=== PATIENT | female | born 1990 | race Caucasian/White ===

== ENCOUNTER 2017-02-27 07:18 | Emergency (ER) | payer OTHER ==
[~2017-02-27] VITALS: Ht 165.1 cm; Wt 74.8 kg
[~2017-02-27 07:18] MED LIST: ABILIFY 2 MG2 M1; ALPRAZOLAM ER1 MG; APRI1 EACH PO; CYMBALTA30 MG; METROGEL-VAGINA70 GM VG; ULTRAM 50MG TAB50 MG PO; ZOFRAN4 MG PO; ZYRTEC10 M2
[2017-02-27] MEDS ORDERED: ATIVAN0.5 MG PO (07:25)
[2017-02-27] MEDS ORDERED: BACTRIM DS TAB1 EACH PO (07:26)
[2017-02-27 07:42] LABS: URINE BILIRUBIN NEGATIVE (Negative); URINE BLOOD 3+ (Negative); URINE COLOR YELLOW; URINE GLUCOSE-RANDOM* NEGATIVE (Negative); URINE KETONES NEGATIVE (Negative); URINE LEUKOCYTES-REFLEX 1+ (Negative); URINE PROTEIN (DIPSTICK) NEGATIVE (Negative); URINE SPECIFIC GRAVITY <= 1.005 (1.003-1.035); URINE UROBILINOGEN 0.2 E.U./dl (0.2-1.0)
[2017-02-27 07:53] LABS: CASTS None Seen /LPF (None Seen); SQUAMOUS 4-10 Moderate /LPF (0-3)
[2017-02-27 07:54] LABS: CRYSTALS None Seen /LPF (None Seen); URINE RBC 0-2 Rare /HPF (0-2); URINE WBC-REFLEX 6-15 Few /HPF (0-5); WBC CLUMPS Few (None Seen)
[2017-02-27 08:21] LABS: ABSOLUTE NEUTROPHILS 8.2 thou/uL (1.4-8.2); BASOPHILS 0.5 % (0.0-2.0); EOSINOPHILS 1.4 % (0.0-3.0); HEMATOCRIT 40.2 % (37.0-47.0); HEMOGLOBIN 13.7 gm/dL (12.0-15.0); LYMPHOCYTES 22.1 % (24.0-44.0); MCH 32.2 pg (26.0-34.0); MCHC 34.1 g/dL (28.0-37.0); MCV 94.4 fL (80.0-100.0); MONOCYTES 5.7 % (1.0-8.0); PLATELET COUNT 175 thou/uL (150-400); POLYS 70.3 % (36.0-66.0); RBC 4.26 mil/uL (4.20-5.00); RDW 14.3 % (10.5-14.5); WBC 11.7 thou/uL (4.0-11.0)
[2017-02-27 08:28] LABS: POTASSIUM 4.1 mmol/L (3.5-5.1)
[2017-02-27 08:33] LABS: ALBUMIN 3.6 g/dL (3.4-5.0); TOTAL BILIRUBIN 0.3 mg/dL (<0.1-1.0); TOTAL PROTEIN 7.7 g/dL (6.4-8.2)
[2017-02-27 09:10] LABS: MANUAL DIFF NO
[2017-02-27] MEDS ORDERED: NORCO 5-325 TA1 EACH PO (11:08)
[2017-02-27] MEDS ORDERED: MACROBID 100 M100 M1 PO (11:08)
[2017-02-27] MEDS ORDERED: ZOFRAN ODT4 MG PO (11:08)
[2017-02-27] MEDS ORDERED: PYRIDIUM200 MG PO (11:08)
[2017-02-27 11:25] VITALS: BP 108/64
== END 2017-02-27 11:25 | disposition home or self-care (01) ==
LOC: ER 07:18
PROVIDERS: Emergency Medicine
DX: N30.80 Other cystitis without hematuria (principal); F41.9 Anxiety disorder, unspecified; F32.9 Major depressive disorder, single episode, unspecified; Z98.890 Other specified postprocedural states; F10.99 Alcohol use, unspecified with unspecified alcohol-induced disorder

== ENCOUNTER 2019-01-13 22:32 | Emergency (ER) | payer OTHER ==
[~2019-01-13] VITALS: Ht 167.6 cm; Wt 61.7 kg
[~2019-01-13 22:32] MED LIST changes: +ATIVAN0.5 MG PO; +BACTRIM DS TAB1 EACH PO; +MACROBID 100 M100 M1 PO; +NORCO 5-325 TA1 EACH PO; +PYRIDIUM200 MG PO; +ZOFRAN ODT4 MG PO
[2019-01-13] MEDS ORDERED: HYDROXYZINE HCL25 M1 PO (22:53)
[2019-01-14 00:06] LABS: HEMATOCRIT 36.9 % (37.0-47.0); HEMOGLOBIN 12.5 gm/dL (12.0-15.0); MCH 33.4 pg (26.0-34.0); MCHC 33.9 g/dL (28.0-37.0); MCV 98.5 fL (80.0-100.0); RBC 3.75 mil/uL (4.20-5.00); RDW 14.1 % (10.5-14.5); WBC 7.7 thou/uL (4.0-11.0)
[2019-01-14 00:13] LABS: CREATININE 0.8 mg/dL (0.6-1.0); POTASSIUM 4.6 mmol/L (3.5-5.1)
[2019-01-14 00:18] LABS: AMP/METHAMP Negative (Negative); BARBITURATES Negative (Negative); BENZODIAZEPINES Negative (Negative); COCAINE Negative (Negative); METHADONE Negative (Negative); OPIATES Negative (Negative); PCP Negative (Negative)
[2019-01-14 17:30] VITALS: BP 108/76
== END 2019-01-14 17:30 ==
LOC: ER 22:32
PROVIDERS: Emergency Medicine
DX: F10.20 Alcohol dependence, uncomplicated (principal); Y90.6 Blood alcohol level of 120-199 mg/100 ml; R45.851 Suicidal ideations; F32.9 Major depressive disorder, single episode, unspecified; F41.9 Anxiety disorder, unspecified; G43.909 Migraine, unspecified, not intractable, without status migrainosus; Z79.899 Other long term (current) drug therapy